=== PATIENT | female | born 1940 | race Asian ===

== ENCOUNTER 2017-12-05 12:33 | Emergency (ER) | payer MEDICARE, OTHER ==
[~2017-12-05] VITALS: Ht 154.9 cm; Wt 70.9 kg
[2017-12-05] MEDS ORDERED: CHOL100012 PO (13:53)
[2017-12-05] MEDS ORDERED: ALPR-475 PO (13:54)
[2017-12-05] MEDS ORDERED: DABI150C PO (13:54)
[2017-12-05] MEDS ORDERED: ESCI20TA10 PO (13:55)
[2017-12-05] MEDS ORDERED: LANS15CA60 PO (13:55)
[2017-12-05] MEDS ORDERED: SIMV20TA3 PO ×2 (13:56→13:57)
[2017-12-05] MEDS ORDERED: METO25TA35 PO (13:56)
[2017-12-05] MEDS ORDERED: DISO100C3 PO (13:57)
[2017-12-05] MEDS ORDERED: ZOLP10TA5 PO (13:58)
[2017-12-05 15:01] LABS: MICROSCOPIC AUTO
[2017-12-05 15:02] LABS: CULTURE INDICATED? YES
[2017-12-05 15:10] VITALS: BP 174/78
== END 2017-12-05 16:13 | disposition home or self-care (01) ==
LOC: ED 16:07
DX: R05 Cough (principal); R39.15 Urgency of urination; E78.00 Pure hypercholesterolemia, unspecified; I10 Essential (primary) hypertension; K21.9 Gastro-esophageal reflux disease without esophagitis; I48.91 Unspecified atrial fibrillation
CPT/HCPCS: 71046; 81001; 87086; 99285